=== PATIENT | male | born 1995 | race Caucasian/White ===

== ENCOUNTER 2021-12-18 16:10 | Emergency (ER) | payer BC ==
[2021-12-18] MEDS ORDERED: HYDROmorphone 1 MG/ML Syringe IVPUSH ONE (16:38)
[2021-12-18] MEDS ORDERED: Sodium Chloride 0.9% 10 ML Syringe FLUSH PRN (16:38)
[2021-12-18] MEDS ORDERED: Propofol 200 MG/20 ML SDV IVPUSH ONE (16:45)
== END 2021-12-18 18:20 | disposition home or self-care (01) ==
LOC: JD.ED 16:10
DX: S43.004A Unspecified dislocation of right shoulder joint, initial encounter (principal); V86.56XA Driver of dirt bike or motor/cross bike injured in nontraffic accident, initial encounter
CPT/HCPCS: 23650; 73020; 73030; 96374; 99284; J1170; J2704; J3490; 99283